=== PATIENT | female | born 1960 | race Caucasian/White ===

== ENCOUNTER 2019-05-10 17:15 | Outpatient (REF) | payer BC, SELFPAY | END 2019-05-10 17:35 | LOC: LBN 17:15 | PROVIDERS: PCP Emergency Medicine; Visit Provider Nurse Practitioner Family | DX: R39.15 Urgency of urination (principal) | CPT/HCPCS: 87086 ==

== ENCOUNTER 2020-01-14 13:28 | Outpatient (CLI) | payer OTHER, SELFPAY ==
[2020-01-20 22:35] LABS: SARS-CoV-2 RNA Undetected (Undetected); SARS-CoV-2 Specimen Source Nasopharynx
== END 2020-01-14 13:48 ==
PROVIDERS: PCP Emergency Medicine; Visit Provider Emergency Medicine
DX: R05 Cough (principal)
CPT/HCPCS: U0003

== ENCOUNTER 2020-06-02 13:03 | Outpatient (CLI) | payer OTHER, SELFPAY ==
[2020-06-05 14:24] LABS: COVID-19 RT-PCR Result NEGATIVE (Negative)
== END 2020-06-02 13:23 ==
PROVIDERS: PCP Emergency Medicine; Visit Provider Emergency Medicine
DX: Z20.828 Contact with and (suspected) exposure to other viral communicable diseases (principal)
CPT/HCPCS: U0003

== ENCOUNTER 2020-06-08 04:45 | Outpatient (CLI) | payer OTHER, SELFPAY ==
[2020-06-10 09:51] LABS: COVID-19 RT-PCR Result NEGATIVE (Negative)
== END 2020-06-08 05:05 ==
PROVIDERS: PCP Emergency Medicine; Visit Provider Emergency Medicine
DX: Z20.828 Contact with and (suspected) exposure to other viral communicable diseases (principal)
CPT/HCPCS: U0003

== ENCOUNTER 2022-12-08 17:45 | Emergency (ER) | payer BC, SELFPAY ==
[2022-12-08 17:51] VITALS: BP 132/80; PULSE 85; RESP 20; TEMP 36.8; O2SAT 99
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
[2022-12-08] MEDS: Doxycycline Hyclate 100 MG CAP 200 MG PO (19:22)
[2022-12-08] MEDS: Lidocaine 4% Cream 5 GM TUBE TP (19:27)
--- NOTE | 2022-12-09 11:01 | NUR.NOTE ---
Nursing Note: PT called looking for the antibiotic that was ordered for her during her visit. I have spoken with the doctor on for today and he will review the chart and call in the prescription for her.
--- NOTE | 2022-12-09 11:05 | W.EDPROG ---
Date of service: 12/09/22 Time of Service: 11:05 Medical Decision Making This patient called the emergency department during my shift. She was seen yesterday for a laceration with was reportedly contaminated. A prescription for her doxycycline had not been sent to her pharmacy. I called in 5 days worth of doxycycline, 100 mg twice daily. I advised patient to return to the ED if she developed fevers streaking signs of infection or any purulent drainage from her wound. She understood her return indications and will supervisor opening and picking her prescription. Discharge Plan Disposition Patient Disposition: Home Discharge Details Clinical Impression: Laceration of arm, Contusion of rib on left side Primary Care Provider: Jean Carlos Dorsey ED Provider: Ion Noel Home Meds and New Rx's Prescriptions: New doxycycline hyclate 100 mg capsule 100 mg PO BID Qty: 10 0RF No Action cannabidiol 100 mg/mL solution See Rx Instructions PO DAILY Rx Instructions: 500 mg PO daily; albuterol sulfate 90 mcg/actuation HFA aerosol inhaler 2 puff IH 6XD PRN (Reason: shortness of breath or wheezing) Qty: 18 0RF benzonatate [Tessalon Perles] 100 mg capsule 100 mg PO TID PRN (Reason: cough) Qty: 30 0RF cholecalciferol (vitamin D3) 1,000 UNIT tablet 1,000 unit PO DAILY WINTER Sinus Rinse Starter 1 EACH packet 1 ea NS TID Rx Instructions: JOHNATHON Discharge Instructions Instructions: Laceration (ED), Rib Contusion (ED) Additional Instructions: Patient is very important that you take deep breath every hour on the hour to expand your lungs fully. Please get some lidocaine patches [id number], these are 4%, use for 12 hours a day. While the lidocaine patches on please do not apply any cool packs to the affected area since this will affect absorption of the medication. Do not apply any warm compresses either on the lidocaine patch. Please return to the emergency department on Friday for wound check. At that time the first dressing will be taken off. Please take the antibiotics as prescribed. Should you develop any fevers please return to the emergency department immediately. Discharge Data Discharge Date/Time-TO BE ENTERED AT DEPARTURE: 12/08/22 19:40
--- NOTE | 2022-12-09 11:31 | W.EDPROG ---
Date of service: 12/09/22 Time of Service: 11:31 Medical Decision Making I was in touch with Dr. Noel who requested 7 days of doxycycline. I sent in a prescription for 7 days of doxycycline. Discharge Plan Disposition Patient Disposition: Home Discharge Details Clinical Impression: Laceration of arm, Contusion of rib on left side Primary Care Provider: Jean Carlos Dorsey ED Provider: Ion Noel Home Meds and New Rx's Prescriptions: New doxycycline hyclate 100 mg capsule 100 mg PO BID Qty: 10 0RF doxycycline hyclate 100 mg capsule 100 mg PO BID 7 Days Qty: 14 0RF No Action cannabidiol 100 mg/mL solution See Rx Instructions PO DAILY Rx Instructions: 500 mg PO daily; albuterol sulfate 90 mcg/actuation HFA aerosol inhaler 2 puff IH 6XD PRN (Reason: shortness of breath or wheezing) Qty: 18 0RF benzonatate [Tessalon Perles] 100 mg capsule 100 mg PO TID PRN (Reason: cough) Qty: 30 0RF cholecalciferol (vitamin D3) 1,000 UNIT tablet 1,000 unit PO DAILY [facility] Sinus Rinse Starter 1 EACH packet 1 ea NS TID Rx Instructions: JOHNATHON Discharge Instructions Instructions: Laceration (ED), Rib Contusion (ED) Additional Instructions: Patient is very important that you take deep breath every hour on the hour to expand your lungs fully. Please get some lidocaine patches [id number], these are 4%, use for 12 hours a day. While the lidocaine patches on please do not apply any cool packs to the affected area since this will affect absorption of the medication. Do not apply any warm compresses either on the lidocaine patch. Please return to the emergency department on Friday morning for wound check. At that time the first dressing will be taken off. Please take the antibiotics as prescribed. Should you develop any fevers please return to the emergency department immediately. Discharge Data Discharge Date/Time-TO BE ENTERED AT DEPARTURE: 12/08/22 19:40
== END 2022-12-08 19:40 | disposition home or self-care (01) ==
PROVIDERS: Emergency Provider Emergency Medicine; PCP Nurse Practitioner Family
DX: S41.112A Laceration without foreign body of left upper arm, initial encounter (principal); V19.3XXA Pedal cyclist (driver) (passenger) injured in unspecified nontraffic accident, initial encounter; S30.1XXA Contusion of abdominal wall, initial encounter
CPT/HCPCS: 12005; 90471; 99284

== ENCOUNTER 2022-12-10 07:58 | Emergency (ER) | payer BC, SELFPAY ==
[2022-12-10 08:00] VITALS: BP 135/86; PULSE 83; RESP 18; TEMP 36.8; O2SAT 98
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
[2022-12-10] MEDS: Celecoxib 200 MG CAP PO (08:57)
== END 2022-12-10 09:08 | disposition home or self-care (01) ==
PROVIDERS: Emergency Provider Emergency Medicine; PCP Nurse Practitioner Family
DX: S41.112D Laceration without foreign body of left upper arm, subsequent encounter (principal); V19.3XXD Pedal cyclist (driver) (passenger) injured in unspecified nontraffic accident, subsequent encounter
CPT/HCPCS: 99283

== ENCOUNTER 2022-12-18 21:48 | Outpatient (REF) | payer BC, SELFPAY ==
[2022-12-18 21:20] LABS: Abs Immature Grans 0.02 10^3/uL (0.0-0.06); Absolute Basophil Count 0.07 10^3/uL (0.0-0.2); Absolute Eosinophil Count 0.17 10^3/uL (0.0-0.7); Absolute Lymphocyte Count 1.94 10^3/uL (1.2-3.4); Absolute Monocyte Count 0.53 10^3/uL (0.1-0.8); Absolute Neutrophil Count 3.34 10^3/uL (1.2-6.7); Basophils % 1.2; Eosinophils % 2.8; HCT 43.4 % (36.0-46.0); HGB 14.6 g/dL (11.2-15.7); Immature Grans % 0.3; MCH 32.7 pg (27.0-33.0); MCHC 33.6 % (32.0-36.0); MCV 97 fL (80-95); MPV 11.7 fL (8.0-11.0); Monocytes % 8.7; Platelet Count 301 10^3/uL (130-400); RBC 4.46 10^6/uL (3.93-5.22); RDW 12.2 % (11.7-14.6); RDW-SD 43.9 fL; WBC 6.07 10^3/uL (4.4-10.8)
[2022-12-18 22:27] LABS: ALT 33 U/L (14-59); AST 25 U/L (15-37); Albumin 3.7 g/dL (3.4-5.0); Alkaline Phosphatase 90 U/L (46-116); Anion Gap 9.3 mmol/L (3-11); BUN 22 mg/dL (7-18); Bilirubin, Total 0.4 mg/dL (0.2-1.0); CO2 25.7 mmol/L (21.0-32.0); CREATININE 0.9 mg/dL (0.55-1.02); Calcium 9.1 mg/dL (8.5-10.1); Calculated LDL 88 mg/dL (<100); Chloride 104 mmol/L (98-107); Cholesterol 192 mg/dL (<200); Estimated GFR 71.83 (mL/min/1.73m2); Glucose 98 mg/dL (74-106); HDL Cholesterol 61 mg/dL (40-60); Potassium 4.8 mmol/L (3.5-5.1); Sodium 139 mmol/L (136-145); Total Protein 7.7 g/dL (6.4-8.2); Triglyceride 219 mg/dL (<150)
[2022-12-20 11:07] LABS: Hepatitis C Ab w Rflx HCV PCR Negative (Negative)
[2022-12-20 11:17] LABS: HIV-1/2 Ag & Ab Screen Negative (Negative)
== END 2022-12-18 21:49 | disposition home or self-care (01) ==
LOC: LBN 21:48
PROVIDERS: PCP Nurse Practitioner Family; Visit Provider Nurse Practitioner Family
DX: S41.112D Laceration without foreign body of left upper arm, subsequent encounter (principal); Z13.220 Encounter for screening for lipoid disorders; Z11.4 Encounter for screening for human immunodeficiency virus [HIV]; Z11.59 Encounter for screening for other viral diseases; Z13.228 Encounter for screening for other metabolic disorders
CPT/HCPCS: 80053; 80061; 86803; 87389; 85025

== ENCOUNTER 2023-11-19 14:50 | Outpatient (REF) | payer BC, SELFPAY ==
--- NOTE | 2023-11-19 13:20 | PAPFT_PTH ---
PATIENT: Brandi Lee LOC: [facility] U#:[id number] AGE/SX: 63/F ROOM: RE11/19/[address]: Jean Carlos Hoffmann DNP : 1960 BED: DIS: 11/19/2023 SPEC #: [id number] RECD: 11/20/23 12:39 STATUS: SRAVAN REQ #: [id number] MARANDA: 11/19/23 13:[address]: Jean Carlos Dorsey DEPT: [facility] Cytology RECD BY: Litzy Lobo Tissues: 1 - CX/ENDOCX FOR PAP SMEARS Procedures: PAP THIN PREP/[facility] Screening HPV DNA PROBE Comments: [id number]
== END 2023-11-19 14:51 | disposition home or self-care (01) ==
LOC: LBN 14:50
PROVIDERS: PCP Nurse Practitioner Family; Visit Provider Nurse Practitioner Family
DX: Z11.3 Encounter for screening for infections with a predominantly sexual mode of transmission (principal)
CPT/HCPCS: 88142; 87624

== ENCOUNTER → 2023-11-27 02:34 | Outpatient (CLI) | payer BC, SELFPAY ==
--- NOTE | 2023-11-27 07:30 | DI.DEXA_ITS ---
Exam(s) XR DEXA BONE DENSITY W/WO MARISA EXAM: XR DEXA BONE DENSITY W/WO MARISA CLINICAL HISTORY: screening for osteoporosis, POSTMENOPAUSAL STATUS, Z78.0 TECHNIQUE: COMPARISON: No exams were available for comparison FINDINGS: Lateral Spine Image: Unremarkable. No compression deformities identified. Left hip: Total T-Score: -1.4 Total Z-Score: -0.2 T- and Z-scores: Findings are consistent with osteopenia. No evidence of osteoporosis. Lumbar Spine: Total T-Score: -1.4 Total Z-Score: 0.3 T- and Z-scores: Findings are consistent with osteopenia. No evidence of osteoporosis. IMPRESSION: No evidence of osteoporosis.
== END ==
PROVIDERS: PCP Nurse Practitioner Family; Visit Provider Nurse Practitioner Family
DX: Z78.0 Asymptomatic menopausal state (principal); Z13.820 Encounter for screening for osteoporosis
CPT/HCPCS: 77080

== ENCOUNTER 2024-09-10 08:56 | Outpatient (CLI) | payer MEDICARE, SELFPAY ==
--- NOTE | 2024-09-10 08:45 | RT.EKG_ITS ---
APPROVED REPORT Exam: Resting ECG Reason for Exam: SOB Patient Location: O HR:62 bpm ECG Measurements Heart Rate 62 AXIS WY 166 P 51 QRSd 84 QRS 16 QT 438 T 61 QTc 445 Conclusion Sinus rhythm...normal P axis, V-rate 50- 99 Borderline low voltage, extremity leads...all extremity leads <0.6mV RSR' in V1 or V2, probably normal variant...small R' only
== END 2024-09-10 08:57 | disposition home or self-care (01) ==
LOC: DI.CM 08:56
PROVIDERS: PCP Nurse Practitioner Family; Visit Provider Nurse Practitioner Family
DX: R06.02 Shortness of breath (principal)
CPT/HCPCS: 93010

== ENCOUNTER 2024-09-10 09:15 | Outpatient (CLI) | payer MEDICARE, SELFPAY ==
[2024-09-10 12:10] LABS: HCT 45.5 % (36.0-46.0); HGB 15.1 g/dL (11.2-15.7); MCH 30.3 pg (27.0-33.0); MCHC 33.2 % (32.0-36.0); MCV 91 fL (80-95); MPV 10.9 fL (8.0-11.0); Platelet Count 217 10^3/uL (130-400); RBC 4.98 10^6/uL (3.93-5.22); RDW 13.1 % (11.7-14.6); RDW-SD 43.9 fL; WBC 6.09 10^3/uL (4.4-10.8)
[2024-09-10 12:47] LABS: ALT 26 U/L (14-59); AST 19 U/L (15-37); Albumin 3.9 g/dL (3.4-5.0); Alkaline Phosphatase 79 U/L (46-116); Anion Gap 8.2 mmol/L (3-11); BUN 15 mg/dL (7-18); Bilirubin, Total 0.4 mg/dL (0.2-1.0); CO2 29.8 mmol/L (21.0-32.0); CREATININE 0.8 mg/dL (0.55-1.02); Calcium 9.8 mg/dL (8.5-10.1); Calculated LDL 148 mg/dL (<100); Chloride 105 mmol/L (98-107); Cholesterol 244 mg/dL (<200); Estimated GFR 81.72 (mL/min/1.73m2); Glucose 95 mg/dL (74-106); HDL Cholesterol 72 mg/dL (>or=50); Magnesium 2.1 mg/dL (1.8-2.4); Potassium 4.4 mmol/L (3.5-5.1); Sodium 143 mmol/L (136-145); TSH (W/Ref FT4) 2.09 uIU/mL (0.36-3.74); Total Protein 7.2 g/dL (6.4-8.2); Triglyceride 121 mg/dL (<150)
== END 2024-09-10 09:16 | disposition home or self-care (01) ==
LOC: LOS 09:16
PROVIDERS: PCP Nurse Practitioner Family; Referring Provider Nurse Practitioner Family; Visit Provider Nurse Practitioner Family
DX: R06.02 Shortness of breath (principal); M25.562 Pain in left knee
CPT/HCPCS: 36415; 80053; 80061; 85027; 83735; 84443

== ENCOUNTER 2024-09-16 00:55 | Outpatient (CLI) | payer MEDICARE, SELFPAY ==
--- NOTE | 2024-09-16 06:30 | ETT_ITS ---
APPROVED REPORT Exam: Exercise Treadmill Patient Location: Out-Patient Room/Bed: Stress Nurse: Melba Moeller RN Ordering Provider:BLANCA GAMBLETad DELEON, Contact Number: [phone] BMI: 27.12 Baseline Rhythm: Sinus Rhythm Indications: FERNANDEZ Medical History Medical History: L knee pain Cardiac Medications: meloxicam, albuterol Allergies: ibuprofen, acetaminophen, aspirin, amoxicillin Cardiac Risk Factors: family hx, former smoker Previous Cardiac Procedures: none Pretest Chest Pain Characteristics: No chest pain Exercise History: Physically active Physical Disabilities: none Lung Sounds: Clear to auscultation Heart Sounds: Regular Stress Test Details Test: Exercise stress testing was performed using a Joe protocol. Rest Stress HR Resting HR Supine: 59 bpm Max Heart Rate (APMHR): 155 bpm Resting HR Standin bpm Target HR (85% APMHR): 132 bpm Max HR Achieved: 133 bpm % of APMHR: 86 Recovery HR: 66 bpm HR response to stress: Normal HR response to stress BP Resting BP Supine: 110/66 mmHg Resting BP Standin/80 mmHg Max BP: 150/80 mmHg Recovery BP: 112/86 mmHg BP response to stress: Normal blood pressure response to stress. ECG Resting ECG: Sinus Rhythm Ectopy: none Stress ECG: Sinus Tachycardia ST Change: No significant ST segment changes noted Arrhythmia: None Recovery ECG: Sinus Rhythm Recovery ST Change: No significant ST segment changes noted Recovery Arrhythmia: rare PVC Clinical Reason for Termination: Target HR Achieved Stress Symptoms: Dyspnea Exercise duration: 05 min23 sec Highest Stage Reached: Stage 2: 2.5 mph at 12% grade. Exercise capacity: 7.05 METs Angina Score: None Rate Pressure Product: Stress ECG Conclusion 1. Resting electrocardiogram was normal. 2. Patient exercised on the Joe protocol and completed a workload of 7 METS 3. Normal heart rate and blood pressure response to exercise. The patient achieved 86% of maximal pr edicted heart rate for age 4. There was no electrocardiographic evidence of myocardial ischemia 5. There were no significant dysrhythmias Stress Test Summary STAGE Time (mins) Speed (mph) Grade (%) HR BP SpO2 SYMPTOMS METS Supine 59 110/66 Standing 77 110/80 1 3 1.7 10 111 mild SOB 4.5 2 6 2.5 12 130 7 1 min recovery 121 150/80 94 3 min recovery 69 116/80 98 6 min recovery 66 112/86 98 symptoms resolved
--- NOTE | 2024-09-16 06:30 | DI.RAD_ITS ---
Exam(s) XR CHEST 2V PA LATERAL EXAM: XR CHEST 2V PA LATERAL CLINICAL HISTORY: SOB on exertion,r06.02 TECHNIQUE: 2D digital imaging was performed. Two views. COMPARISON: CT CHEST WITH CONTRAST from 11/01/2016 FINDINGS: HEART: Normal size. Aorta: Not dilated. PULMONARY VASCULATURE: Normal. MEDIASTINUM: Unremarkable. LUNGS: Clear. PLEURAL SPACE: No pleural effusion or pneumothorax. BONE:Unremarkable for age. SOFT TISSUES: Unremarkable. IMPRESSION: No acute abnormality. DATA REPOSITORY: RADIATION DOSE DELIVERED:
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
== END 2024-09-16 01:15 ==
PROVIDERS: PCP Nurse Practitioner Family; Visit Provider Nurse Practitioner Family
DX: M25.562 Pain in left knee (principal); R06.02 Shortness of breath; R06.09 Other forms of dyspnea
CPT/HCPCS: 73562; 93016; 93018; 71046; 93017

== ENCOUNTER 2025-02-22 03:46 | Outpatient (CLI) | payer MEDICARE, SELFPAY ==
[2025-02-22] MEDS: Levalbuterol HFA 15 GM INH 4 PUFF IH (09:20)
--- NOTE | 2025-02-23 07:42 | W.PFT ---
Date of service: 02/22/25 Time of Service: 08:03 Pulmonary Function Test Result Indications: Dyspnea on exertion Impression 1. Good patient effort was noted. ATS standards for reproducibility were met. 2. Spirometry showed mild obstructive lung disease with an FEV1 of 88% (2.0 L) 3. Following the administration of a bronchodilator there was a significant response. FEV1 improved to 99% 4. TLC and RV were elevated, consistent with air trapping 5. DLCO was 74%, consistent with a mild defect in alveolar gas exchange
== END 2025-02-22 03:47 | disposition home or self-care (01) ==
PROVIDERS: PCP Nurse Practitioner Family; Visit Provider Internal Medicine Pulmonary Disease
DX: R06.02 Shortness of breath (principal); R68.89 Other general symptoms and signs
CPT/HCPCS: 94060; 94726; 94729